=== PATIENT | female | born 1960 | race Two or more races ===

== ENCOUNTER 2016-11-30 09:21 | Emergency (ER) | payer OTHER ==
[~2016-11-30] VITALS: Ht 167.6 cm; Wt 129.7 kg
[~2016-11-30 09:21] MED LIST: ASPI-231 PO; DIVA500T7 PO; DULO60CA PO; GABA-494 PO; MULTLIQ36 PO; OMEG100078 PO; SIMV-8 PO; SULF400T11 PO
[2016-11-30 10:08] VITALS: BP 142/66
== END 2016-11-30 11:09 | disposition home or self-care (01) ==
LOC: ER 09:21
DX: J03.90 Acute tonsillitis, unspecified (principal); I10 Essential (primary) hypertension; E78.5 Hyperlipidemia, unspecified